=== PATIENT | female | born 1990 | race Two or more races ===

== ENCOUNTER 2021-04-20 20:33 | Emergency (ER) | payer MEDICAID, OTHER ==
[~2021-04-20] VITALS: Ht 152.4 cm; Wt 45.8 kg
[2021-04-20 20:42] VITALS: BP 130/85
[2021-04-20 21:24] LABS: Basophils # (auto) 0 10 ^3/uL (0-0.2); Basophils % (auto) 0.6 % (0.0-2.0); Eosinophils # (auto) 0.2 10 ^3/uL (0-0.8); Eosinophils % (auto) 2.1 % (0.0-7.0); Hematocrit 40.2 % (36.0-46.0); Hemoglobin 13.9 g/dL (12.2-16.2); Lymphocytes # (auto) 2.3 10 ^3/uL (0.4-5.4); Lymphocytes % (auto) 28.9 % (10.0-50.0); Mean Corpuscular Hemoglobin 30.4 pg (28.0-32.0); Mean Corpuscular Hgb Conc. 34.6 g/dL (32.0-36.0); Mean Corpuscular Volume 87.8 fL (80.0-100.0); Monocytes # (auto) 0.5 10 ^3/uL (0-1.3); Monocytes % (auto) 6.2 % (0.0-12.0); Neutrophils # (auto) 4.8 10 ^3/uL (1.6-8.6); Neutrophils % (auto) 62.2 % (37.0-80.0); Platelet Count (auto) 180 10^3/uL (140-450); Red Blood Cells 4.58 10^6/uL (4.0-5.20); Red Cell Distribution Width 15.2 % (11.8-14.3); White Blood Cell 7.8 10^3/uL (4.4-10.8)
[2021-04-20 21:40] LABS: INR 1.09 (0.9-1.15); Partial Thromboplastin Time 29.4 sec (23.0-31.2)
== END 2021-04-21 01:21 | disposition left against medical advice (07) ==
LOC: ER 20:33
DX: R51.9 Headache, unspecified (principal); M54.2 Cervicalgia; M25.551 Pain in right hip; M25.552 Pain in left hip
CPT/HCPCS: 36415; 70450; 71046; 72125; 72170; 85025; 85610; 85730; 93005

== ENCOUNTER 2021-10-14 12:09 | Emergency (ER) | payer MEDICAID, OTHER ==
[~2021-10-14] VITALS: Ht 152.4 cm; Wt 41.7 kg
[2021-10-14 12:10] VITALS: BP 133/99
== END 2021-10-14 18:10 | disposition home or self-care (01) ==
LOC: ER 12:09
DX: R10.2 Pelvic and perineal pain (principal); R42 Dizziness and giddiness